=== PATIENT | female | born 1945 | race Caucasian/White ===

== ENCOUNTER 2016-12-01 09:26 | Day surgery (SDC) | payer OTHER ==
[2016-12-01] MEDS ORDERED: MIDAZOLAM 2 MG/2 ML VIAL IVP ONE (09:35)
[2016-12-01] MEDS ORDERED: PROPOFOL 200 MG/20 ML VIAL IVP ONE (09:35)
[2016-12-01] MEDS ORDERED: fentaNYL 100 MCG/2 ML INJ IVP ONE (09:35)
[2016-12-01] MEDS ORDERED: NS 500 ML IV ONE (09:35)
[2016-12-01] MEDS ORDERED: BENZOCAINE UNIT DOSE SPRAY HURRICAINE MM ONE (09:35)
--- NOTE | 2016-12-01 09:51 | CPEKG ---
Heart Rate: 82 RR Interval: 732 QRSD Interval: 70 QT Interval: 388 QTC Interval: 453 QRS [place]: 55 T Wave [place]: 5 EKG Severity - ABNORMAL ECG - EKG Impression: ATRIAL FIBRILLATION, V-RATE 59-94 EKG Impression: VENTRICULAR PREMATURE COMPLEX Electronically Signed By: Deven Patrick 01-Dec-2016 14:17:48
[2016-12-01 10:17] LABS: APTT 32.4 SEC (23.0-38.0); INR 1.49 (0.83-1.16)
[2016-12-01 10:32] LABS: ANION GAP 9 mEq/L (8-16); CARBON DIOXIDE 26 mEq/l (22-31); CHLORIDE 107 mEq/L (97-110); CREATININE 0.8 mg/dL (0.6-1.0); GLOMERULAR FILTRATION RATE > 60; GLUCOSE 100 mg/dL (70-100); MAGNESIUM 1.8 mg/dL (1.6-2.3); POTASSIUM 4.6 mEq/L (3.5-5.2); SODIUM 142 mEq/L (134-144)
[2016-12-01] MEDS ORDERED: LIDOCAINE 2% 5 ML SDV ONE (11:02)
[2016-12-01] MEDS ORDERED: PROPOFOL 200 MG/20 ML VIAL ONE (11:03)
--- NOTE | 2016-12-01 11:36 | CPEKG ---
Heart Rate: 67 RR Interval: 896 P-R Interval: 168 QRSD Interval: 88 QT Interval: 424 QTC Interval: 448 P [place]: 49 QRS [place]: 49 T Wave [place]: 21 EKG Severity - OTHERWISE NORMAL ECG - EKG Impression: SINUS RHYTHM EKG Impression: ATRIAL PREMATURE COMPLEX Electronically Signed By: Deven Patrick 01-Dec-2016 14:17:40
--- NOTE | 2016-12-01 11:43 | ECHO ---
[id number] + + [address] : : [facility] [address] : : [phone] + + Transesophageal Echocardiographic Report + --------+ :Name: GIRISH MARIE JStudy Date: 12/01/2016 11:10 AM : : Hospital Admission Number: [id number] Locat ion: [facility]: :: 1945 Gender: Female : :Age: 71 yrs Race: WH : :Reason For Study: Eval FRANTZ : :History: Pre Cardioversion : + --------+ Procedure With heart rate, blood pressure and oximetry monitered the patient was administered IV Versed, fentanyl and the bite block in place, the throat was anesthetized with topical spray. The Omniplane transesophageal probe was passed without difficulty. LV The left ventricular ejection fraction is normal. The rhythm is atrial fibrillation. Atria No left atrial mass or thrombus visualized. No thrombus is detected in the left atrial appendage. Mitral Valve The mitral valve is normal in structure and function. There is no evidence of mitral valve prolapse. There is no mitral valve stenosis. There is no mitral regurgitation noted. Aortic Valve The aortic valve is normal in structure and function. The aortic valve is trileaflet. There is no aortic stenosis. There is no aortic insufficiency. Pulmonic Valve The pulmonic valve is normal in structure and function. Tricuspid Valve The tricuspid valve is not well visualized. Pericardium There is no pericardial effusion. Proceeded with successful elective DC cardioversion. Conclusion A 2D transesophageal echocardiogram with color flow Doppler was performed. The left ventricular ejection fraction is normal. The rhythm is atrial fibrillation. No left atrial mass or thrombus visualized. No thrombus is detected in the left atrial appendage. The mitral valve is normal in structure and function. There is no mitral regurgitation noted. The aortic valve is normal in structure and function. The aortic valve is trileaflet. There is no pericardial effusion. Proceeded with successful elective DC cardioversion. Final Reading Physician: Basil Richard signed on 12/01/2016 11:42 AM Ordering Physician: DAVIAN OSORIO Performed By: Davian Osorio MD
--- NOTE | 2016-12-01 12:19 | PDTEE1 ---
AVA Cardioversion Procedure Indications: Atrial Fibrillation Consent: Signed and in Chart Anticoagulation: Eliquis Procedural Details: Pads were placed in anterior-posterior position. AVA probe was advanced and standard images obtained. There is no evidence of left atrial or left atrial appendage thrombus. Synchronized cardioversion attempt #1: 200J Results: Normal sinus rhythm Conclusions: Successful AVA Cardioversion (1. pt willf/u in one week with sg-chandu for ov and ekg.....rec TTE inone month at our office( tv not well seen on AVA))
== END 2016-12-01 13:05 | disposition home or self-care (01) ==
LOC: FCATH 09:26
PROVIDERS: ATTEND Internal Medicine Cardiovascular Disease
PROC: 5A2204Z Restoration of Cardiac Rhythm, Single (ICD-10-PCS; principal; 2016-12-01)
PROC: B246ZZ4 Ultrasonography of Right and Left Heart, Transesophageal (ICD-10-PCS; principal; 2016-12-01)
DX: I48.91 Unspecified atrial fibrillation (principal)
CPT/HCPCS: J2704

== ENCOUNTER → 2017-03-30 | Day surgery (SDC) | payer OTHER ==
[~2017-03-30] MED LIST: BENZOCAINE UNIT DOSE SPRAY HURRICAINE MM ONE; MIDAZOLAM 2 MG/2 ML VIAL IVP ONE; NS 500 ML IV ONE; PROPOFOL 200 MG/20 ML VIAL IVP ONE; PROPOFOL 200 MG/20 ML VIAL ONE; fentaNYL 100 MCG/2 ML INJ IVP ONE
--- NOTE | 2017-03-30 11:09 | CPEKG ---
Heart Rate: 83 RR Interval: 723 QRSD Interval: 78 QT Interval: 392 QTC Interval: 461 QRS [place]: 67 T Wave [place]: 12 EKG Severity - ABNORMAL ECG - EKG Impression: ATRIAL FIBRILLATION, V-RATE 64-97 EKG Impression: BORDERLINE T ABNORMALITIES, ANTERIOR LEADS Electronically Signed By: Julienne Dugan 30-Mar-2017 12:17:30
[2017-03-30 11:32] LABS: ANION GAP 10 mEq/L (8-16); CALCIUM 9.4 mg/dL (8.5-10.4); CARBON DIOXIDE 24 mEq/l (22-31); CHLORIDE 108 mEq/L (97-110); CREATININE 0.8 mg/dL (0.6-1.0); GLOMERULAR FILTRATION RATE > 60; GLUCOSE 102 mg/dL (70-100); MAGNESIUM 1.7 mg/dL (1.6-2.3); POTASSIUM 4.3 mEq/L (3.5-5.2); SODIUM 142 mEq/L (134-144)
[2017-03-30 11:43] LABS: INR 1.41 (0.83-1.16); PROTIME(PATIENT) 17.2 SEC (12.0-15.0)
--- NOTE | 2017-03-30 12:16 | CPEKG ---
Heart Rate: 60 RR Interval: 1000 P-R Interval: 168 QRSD Interval: 92 QT Interval: 428 QTC Interval: 428 P [place]: 68 QRS [place]: 66 T Wave [place]: 33 EKG Severity - NORMAL ECG - EKG Impression: SINUS RHYTHM Electronically Signed By: Julienne Dugan 30-Mar-2017 12:20:37
--- NOTE | 2017-03-30 22:32 | CPR ---
[f rep st] NONINVASIVE CARDIAC PROCEDURE REPORT CARDIOVERSION REPORT. INDICATION: Atrial fibrillation. The patient was started on Rythmol anticoagulation and Eliquis. The patient has not missed any dose s since her last transesophageal echocardiogram. She took a dose of Eliquis today and has been inst ructed to continue it long-term. DESCRIPTION: All appropriate consents are signed. Monitoring was established in the [facility]. Dr. Matt Wallis administered IV general anesthesia. A single 200 joule biphasic synchronization shock was ad ministered, and this converted her to sinus rhythm. There were no complications. /[id number]/MODL
== END | disposition home or self-care (01) ==
LOC: FCATH 10:37
PROVIDERS: ATTEND Internal Medicine Cardiovascular Disease
PROC: 5A2204Z Restoration of Cardiac Rhythm, Single (ICD-10-PCS; principal; 2017-03-30)
DX: I48.91 Unspecified atrial fibrillation (principal); K21.9 Gastro-esophageal reflux disease without esophagitis; E78.5 Hyperlipidemia, unspecified; G47.33 Obstructive sleep apnea (adult) (pediatric)
CPT/HCPCS: J2704

== ENCOUNTER → 2017-08-02 | Outpatient (CLI) | payer OTHER | LOC: BRMIMAGING 13:30 | PROVIDERS: ATTEND Nurse Practitioner | DX: Z13.820 Encounter for screening for osteoporosis (principal); M81.0 Age-related osteoporosis without current pathological fracture; Z78.0 Asymptomatic menopausal state; Z79.890 Hormone replacement therapy ==

== ENCOUNTER → 2017-09-12 | Outpatient (CLI) | payer OTHER | LOC: CIMAGING 10:57 | PROVIDERS: ATTEND Nurse Practitioner | DX: Z12.31 Encounter for screening mammogram for malignant neoplasm of breast (principal); Z80.3 Family history of malignant neoplasm of breast | CPT/HCPCS: G0202 ==

== ENCOUNTER 2017-09-16 11:34 | Emergency (ER) | payer OTHER ==
[2017-09-16 11:45] VITALS: BP 153/105; PULSE 72; RESP 16; O2SAT 96
--- NOTE | 2017-09-16 12:15 | EDPHY ---
H & P HPI/ROS: CHIEF COMPLAINT: Right foot pain History by patient HISTORY OF PRESENT ILLNESS: 71-year-old woman with a history of osteoporosis and AFib presents complaining of right foot pain after tripping down the last stair and falling. Patient did land on her face but did not hit her head or lose consciousness. She complains only of pain in her mid foot. She thinks her foot plantar flexed and rolled underneath her. She cannot weight bear due to the pain. She denies other pain or injury. She has not taken anything for it. REVIEW OF SYSTEMS: As in HPI, and all other systems reviewed and are negative Smoking Status: Former smoker Physical Exam: General Appearance: Alert and no distress. Eyes: Pupils equal and round no injection. Musculoskeletal: Neck is supple and nontender. Extremities: Right foot positive swelling over base of metatarsals, positive diffuse midfoot tenderness, no plantar ecchymosis, positive pain with range of motion of toes, decreased range of motion of ankle secondary to pain. No lateral or malleolar tenderness, no knee or proximal fibular tenderness, DP pulse 2 +equal to the left, distal sensation intact, cap refill less than 3 seconds Skin: No rashes or lesions except as described above. Constitutional: Initial Vital Signs Heart Rate 72 09/16/17 11:42 Respiratory Rate 16 09/16/17 11:42 Blood Pressure 153/105 H 09/16/17 11:42 O2 Sat (%) 96 09/16/17 11:42 O2 Delivery Mode Room Air Allergies/Adverse Reactions: No Known Allergies Allergy (Verified 09/16/17 11:38) Home Medications: Medication Instructions Recorded Atorvastatin Calcium 10 mg PO HS 12/01/16 Celebrex 100 mg PO 12/01/16 Colace 100 MG (*) 300 mg PO DAILY 12/01/16 Coq-10 100 mg PO DAILY 12/01/16 Eliquis 5 mg PO BID 12/01/16 Esomeprazole Magnesium 40 mg PO DAILY 12/01/16 Fish Oil 1 tab PO DAILY 12/01/16 Glucosamine 500 mg PO DAILY 12/01/16 Loratadine 10 mg PO DAILY 12/01/16 Multivitamin 1 tab PO DAILY 12/01/16 Nexium 40 mg PO DAILY 12/01/16 Norethindrone 0.35 tab PO DAILY 12/01/16 Ocuvite Eye + Multi Tablet 1 tab PO DAILY 12/01/16 Ranitidine HCl 300 mg PO HS 12/01/16 Vitamin C 500 mg PO DAILY 12/01/16 Vitamin D3 5,000 unit PO DAILY 12/01/16 Cartia Xt 120 mg PO DAILY 03/30/17 Propafenone HCl ER 225 mg PO BID 03/30/17 Lidocaine 5% [Lidoderm 5% Patch 1 ea TD DAILY #30 patch 09/16/17 (*)] MDM/Departure - [facility] Imaging Results: Imaging Impressions Foot X-Ray 09/16/17 11:41 Impression: 1. Fracture suspected at the base of the second metatarsal with intra-articular involvement as well as transverse fracture proximal shaft of the fourth metatarsal. Consider underlying Lisfranc injury. ED Course/Re-evaluation: 71-year-old woman presents with right foot pain and tenderness after a fall. X- rays reveal 2nd and 4th metatarsal fracture with the radiologist read concern for Lisfranc fracture. Patient was therefore immobilized with a posterior short -leg splint and referred to Orthopedics. She will be nonweightbearing. Her has seen Dr. Aj in the past and she will follow up with his practice. I am recommending Tylenol, ice and topical lidocaine for pain. Patient and understand and are agreeable to this plan. I also recommended patient discuss the safety of Celebrex and Eliquis together with her primary care physician.. - Depart Disposition: Home, Routine, Self-Care Clinical Impression: Fracture of fourth metatarsal bone of right foot Qualifiers: Encounter type: initial encounter Fracture type: closed Fracture alignment: nondisplaced Qualified Code(s): S92.344A - Nondisplaced fracture of fourth metatarsal bone, right foot, initial encounter for closed fracture Fracture of second metatarsal bone of right foot Qualifiers: Encounter type: initial encounter Fracture type: closed Fracture alignment: nondisplaced Qualified Code(s): S92.324A - Nondisplaced fracture of second metatarsal bone, right foot, initial encounter for closed fracture Condition: Good Instructions: Lidocaine Patch (On the skin), Foot Fracture in Adults (ED) Additional Instructions: You were seen by Dr. Elo Lopez today. You have 2 broken bones in your foot. There is a concern for a fracture called Lis Franc fracture. This needs special follow up with orthopedist. You may see Dr. Aj or 1 of his partners. Please call for a follow-up appointment next week. You may take Tylenol 1000 mg 4 times daily for pain. This is safe with both your Eliquis and Celebrex. You may also use topical lidocaine patches for pain. Please do not bear any weight on the foot until you have been cleared by the orthopedist. Ask your primary care physician if you should continue taking Eliquis and the Celebrex together. Return for any worsening or new concerns. Prescriptions: Lidocaine 5% [Lidoderm 5% Patch (*)] 1 ea TD DAILY #30 patch Referrals: Chanel Givens, DARION [Primary Care Provider] - As per Instructions Marilu Aj MD [Medical Doctor] - As per Instructions
== END 2017-09-16 13:00 | disposition home or self-care (01) ==
LOC: CED 11:34
DX: S92.344A Nondisplaced fracture of fourth metatarsal bone, right foot, initial encounter for closed fracture (principal); S92.324A Nondisplaced fracture of second metatarsal bone, right foot, initial encounter for closed fracture; Z79.01 Long term (current) use of anticoagulants; Z87.891 Personal history of nicotine dependence; W10.9XXA Fall (on) (from) unspecified stairs and steps, initial encounter
CPT/HCPCS: 73630-PO

== ENCOUNTER → 2017-09-28 | Outpatient (CLI) | payer OTHER | LOC: CIMAGING 13:55 | PROVIDERS: ATTEND Orthopaedic Surgery | DX: S92.321A Displaced fracture of second metatarsal bone, right foot, initial encounter for closed fracture (principal); M77.31 Calcaneal spur, right foot | CPT/HCPCS: 73700-PO ==

== ENCOUNTER 2017-10-04 11:10 | Day surgery (SDC) | payer OTHER ==
[~2017-10-04 11:10] MED LIST changes: -BENZOCAINE UNIT DOSE SPRAY HURRICAINE MM ONE; -MIDAZOLAM 2 MG/2 ML VIAL IVP ONE; -NS 500 ML IV ONE; -PROPOFOL 200 MG/20 ML VIAL IVP ONE; -PROPOFOL 200 MG/20 ML VIAL ONE; +ceFAZolin 2 GM/SWFI 2 GM/20 ML SYR IVP ONE; -fentaNYL 100 MCG/2 ML INJ IVP ONE
[2017-10-04] MEDS ORDERED: BUPIVACAINE 0.5% 30 ML SDV ONE (11:41)
[2017-10-04] MEDS ORDERED: LR 1,000 ML IV ONE (11:42)
[2017-10-04] MEDS ORDERED: LIDOCAINE 1% 2 ML INJ ID PRN (11:42)
[2017-10-04 11:56] VITALS: PULSE 69
--- NOTE | 2017-10-04 12:15 | PDHPUP ---
History & Physical Update H&P update statement: This history and physical update is based on an assessment of the patient which was completed after admission or registration (within 24 hours), but prior to the surgery/procedure.
--- NOTE | 2017-10-04 12:16 | PDANEPAE ---
ANE History of Present Illness 71 yo F w traumatic foot injury, here for ORIF ANE Past Medical History - Cardiovascular History Hx Hypertension: No Hx Arrhythmias: Yes Hx Chest Pain: No Hx Coronary Artery / Peripheral Vascular Disease: No Hx CHF / Valvular Disease: No Hx Palpitations: No Cardiovascular History Comment: AFIB - Pulmonary History Hx COPD: No Hx Asthma/Reactive Airway Disease: No Hx Recent Upper Respiratory Infection: No Hx Oxygen in Use at Home: No Hx Sleep Apnea: Yes Sleep Apnea Screening Result - Last Documented: Positive - Neurologic History Hx Cerebrovascular Accident: No Hx Seizures: No Hx Dementia: No - Endocrine History Hx Diabetes: No - Renal History Hx Renal Disorders: No - Liver History Hx Hepatic Disorders: No - Neurological & Psychiatric Hx Hx Neurological and Psychiatric Disorders: No - Cancer History Hx Cancer: Yes Cancer History Comment: BASAL CELL CANCER - Congenital Disorder History Hx Congenital Disorders: No - GI History Hx Gastrointestinal Disorders: Yes Gastrointestinal History Comment: REFLUX/GERD - Other Health History Other Health History: AREA OF DRY SKIN LEFT ARM - Chronic Pain History Chronic Pain: Yes (SPONDLTHESIS 4TH LUMBAR) - Surgical History Prior Surgeries: ablation 2000, D&C,BREAST BIOPSY, Fistula repair and hemorrhoidectomy ANE Review of Systems Review of Systems: - Exercise capacity METS (RN): 4 METS ANE Patient History - Allergies Allergies/Adverse Reactions: No Known Allergies Allergy (Verified 09/16/17 11:38) - Home Medications Home Medications: Atorvastatin Calcium 12/01/16 [Last Taken 10/03/17] Celebrex 12/01/16 [Last Taken 10/02/17] Colace 100 MG (*) 12/01/16 [Last Taken 10/02/17] Coq-10 12/01/16 [Last Taken 10/01/17] Eliquis 12/01/16 [Last Taken 10/01/17] Fish Oil 12/01/16 [Last Taken 10/01/17] Glucosamine 12/01/16 [Last Taken 10/02/17] Loratadine 12/01/16 [Last Taken 10/03/17] Multivitamin 12/01/16 [Last Taken 10/03/17] Nexium 12/01/16 [Last Taken 10/04/17] Norethindrone 12/01/16 [Last Taken 10/03/17] Ocuvite Eye + Multi Tablet 12/01/16 [Last Taken 10/03/17] Ranitidine HCl 12/01/16 [Last Taken 10/03/17] Vitamin C 12/01/16 [Last Taken 10/03/17] Vitamin D3 12/01/16 [Last Taken 10/03/17] Cartia Xt 03/30/17 [Last Taken 10/03/17] Propafenone HCl ER 03/30/17 [Last Taken 10/04/17] Lidocaine 5% [Lidoderm 5% Patch (*)] 10/03/17 [Last Taken Unknown] - NPO status NPO Since - Liquids (Date): 10/04/17 NPO Since - Liquids (Time): 21:00 NPO Since - Solids (Date): 10/03/17 NPO Since - Solids (Time): 20:00 - Anes Hx Anes Hx: no prior problems - Smoking Hx Smoking Status: Former smoker - Alcohol Use Alcohol Use: Rarely - Family Anes Hx Family Anes Hx: none Family Hx Anesthesia Complications: none ANE Labs/Vital Signs - Vital Signs Blood Pressure: 141/75 Heart Rate: 69 Respiratory Rate: 16 O2 Sat (%): 94 Height: 160.02 cm Weight: 78.471 kg ANE Physical Exam - Airway Neck exam: FROM Mallampati Score: Class 2 Mouth exam: dentures - Pulmonary Pulmonary: no respiratory distress - Cardiovascular Cardiovascular: regular rate and rhythym - ASA Status ASA Status: III ANE Anesthesia Plan Anesthesia Plan: GA w LMA Regional Anesthesia: adductor canal FNB, popliteal SNB
[2017-10-04] MEDS ORDERED: ceFAZolin 2 GM/SWFI 20 ML SYR IVP ONE (12:19)
[2017-10-04] MEDS ORDERED: MIDAZOLAM 2 MG/2 ML VIAL IVP ONE (12:20)
[2017-10-04] MEDS ORDERED: fentaNYL 100 MCG/2 ML INJ ONE (12:52)
[2017-10-04] MEDS ORDERED: PROPOFOL 200 MG/20 ML VIAL ONE ×2 (12:52)
[2017-10-04] MEDS ORDERED: OXYCODONE/APAP 5/325 TAB PO PRN (14:31)
[2017-10-04] MEDS ORDERED: ACETAMINOPHEN 500 MG TAB PO PRN (14:31)
[2017-10-04] MEDS ORDERED: fentaNYL 100 MCG/2 ML INJ IVP PRN (14:31)
[2017-10-04] MEDS ORDERED: HYDROmorphONE/DILAUDID 1 MG/ML INJ IVP PRN (14:31)
[2017-10-04] MEDS ORDERED: ONDANSETRON 4 MG/2 ML VIAL IVP PRN (14:31)
[2017-10-04] MEDS ORDERED: NALOXONE HCL 0.4 MG/ML INJ IVP PRN (14:31)
[2017-10-04] MEDS ORDERED: HYDROCODONE/APAP 5/325 TAB PO PRN (14:31)
--- NOTE | 2017-10-04 14:34 | POSTOPPROG ---
Post Op Note Date of Operation: 10/04/17 Surgeon: Ethan Iverson Pre-op Diagnosis: Camacho elvira bal injury Post-op Diagnosis: same Indication: above Procedure: 1 and 2 TMT fusion Findings: above Inf/Abcess present in the surg proc area at time of surgery?: No EBL: 50-100
[2017-10-04 15:08] VITALS: TEMP 97.5
[2017-10-04 15:26] VITALS: RESP 17
[2017-10-04 16:15] VITALS: BP 112/71; O2SAT 96
--- NOTE | 2017-10-05 02:33 | GOP ---
[f rep st] OPERATIVE REPORT DATE OF OPERATION: 10/04/2017 SURGEON: Ethan Iverson MD MEDICAL OFFICE CLERK: Francisco Javier Jose SA ANESTHESIA: General with popliteal block. PREOPERATIVE DIAGNOSIS: Right Lisfranc injury and 4th metatarsal base fracture. POSTOPERATIVE DIAGNOSIS: Right Lisfranc injury and 4th metatarsal base fracture. PROCEDURE PERFORMED: 1. Right midfoot fusion with 1st and 2nd tarsometatarsal fusion and intercuneiform fusion. 2. Closed treatment of 4th metatarsal base fracture. FINDINGS: SPECIMENS: None. ESTIMATED BLOOD LOSS: 5 mL. INDICATIONS: This is a 71-year-old male, who sustained this injury and a Lisfranc injury with wideni ng and displacement of the 2nd metatarsal base fracture and Lisfranc ligament. Counseled on the risk s and benefits of operative intervention versus nonoperative intervention, and she elected to proceed with surgery. We discussed risks of nonunion, malunion, continued pain, arthritis, instability, pro minent hardware, wound complications, nerve injury, vessel injury, and she elected to proceed. Infor med consent was obtained. All questions were answered. She was marked preoperatively. DESCRIPTION OF PROCEDURE: She was taken to the operative suite. Anesthesia was administered. She w as sterilely prepped and draped in the normal fashion. Timeout was performed verifying site, side, l ocation, and there was agreement with the team. Esmarch was used and tourniquet was inflated. Incis ion was made over the Lisfranc joint. I mobilized the EHL and the EHB and worked in the interval bet ween these, protecting the neurovascular structures, as well as superficial nerves. Mobilized the yojana ints. These were quite unstable, and then with a knife, mobilized the joints up further, and then us ed a saw and chisel to prepare the joints for fusion, and then drilled holes with these with a K-wire again, to prepare the bony surfaces for fusion. I was then able to reduce the deformity. I placed a guide pin, looking at this manually, across the Lisfranc ligament from the 1st cuneiform to the 2nd metatarsal, held this in reduction with a clamp. Checked this fluoroscopically, drill this, placed a 4.0 headless compression screw. I then reduced the inner cuneiform joints, placed a guide pin, isiah deangelo a 4.0 headless compression screw. I placed 2 headless compression screws sequentially in the 1st tarsometatarsal joint, after reducing this deformity holding compression, and then a screw from the 2nd metatarsal to the medial cuneiform. This lag screw. Good fixation entire midfoot Lisfranc ligam ent area. I used bone graft at this point. Thoroughly irrigated this, closed with 2-0 Vi cryl, 3-0 Quill, and Dermabond. Placed her in a splint sterile dressing taken to PACU in stable cond ition. IMPLANTS: Arthrex 4.0 headless compression screws. SURGEON: Ethan Iverson MD COMPLICATIONS: None. DRAINS: None. CONDITION: Stable. /[id number]/MODL
== END 2017-10-04 16:15 | disposition home or self-care (01) ==
LOC: FSGY 11:10
PROVIDERS: ATTEND Orthopaedic Surgery
PROC: 0QSNXZZ Reposition Right Metatarsal, External Approach (ICD-10-PCS; principal; 2017-10-04 12:30)
PROC: 0SGK0JZ Fusion of Right Tarsometatarsal Joint with Synthetic Substitute, Open Approach (ICD-10-PCS; principal; 2017-10-04 12:30)
DX: S93.326A Dislocation of tarsometatarsal joint of unspecified foot, initial encounter (principal); S92.341A Displaced fracture of fourth metatarsal bone, right foot, initial encounter for closed fracture
CPT/HCPCS: C1713; C1762; J0690; J2250; J2704; J3010

== ENCOUNTER → 2018-09-13 | Outpatient (CLI) | payer OTHER | LOC: CIMAGING 12:35 | PROVIDERS: ATTEND Nurse Practitioner | DX: Z12.31 Encounter for screening mammogram for malignant neoplasm of breast (principal); Z80.3 Family history of malignant neoplasm of breast ==